=== PATIENT | male | born 1995 | race Caucasian/White ===

== ENCOUNTER 2018-06-19 21:43 | Emergency (ER) | payer OTHER ==
[2018-06-19] MEDS: NS 1,000 ML IV (23:01)
[2018-06-19] MEDS: METOCLOPRAMIDE INJ 10MG/2ML VIAL (J2765) IV (23:01)
[2018-06-19] MEDS: diphenhydrAMINE INJ 50MG/ML VIAL (J1200) IV (23:01)
[2018-06-19] MEDS: KETOROLAC 30 MG/ML VIAL (J1885) IV (23:02)
[2018-06-19 23:23] LABS: BASO % 0.3 % (0.0-1.0); EOS # 0.1 10^3/uL (0.0-0.50); EOS % 1.2 % (0.0-3.0); HEMATOCRIT 44.6 % (42.0-52.0); HEMOGLOBIN 15.4 g/dl (13.5-17.5); IMMATURE GRANULOCYTE % 0.3 % (0-3.0); LYMPH # 2.5 10^3/uL (1.5-6.5); LYMPH % 27.9 % (24.0-44.0); MEAN CORPUSCULAR HEMOGLOBIN 29.6 pg (27.0-33.0); MEAN CORPUSCULAR HGB CONC 34.5 g/dl (32.0-36.5); MEAN CORPUSCULAR VOLUME 85.8 fl (80.0-96.0); MONO # 0.7 10^3/uL (0.0-0.8); MONO % 7.5 % (0.0-5.0); NEUTROPHILS # 5.7 10^3/uL (1.8-7.7); NEUTROPHILS % 62.8 % (36.0-66.0); PLATELET COUNT, AUTOMATED 215 10^3/uL (150-450); WHITE BLOOD COUNT 9.1 10^3/uL (4.0-10.0)
[2018-06-19 23:35] LABS: ALBUMIN 3.8 GM/DL (3.2-5.2); ALKALINE PHOSPHATASE 74 U/L (45-117); ALT/SGPT 22 U/L (12-78); ANION GAP 6 MEQ/L (8-16); AST/SGOT 14 U/L (7-37); BILIRUBIN,DIRECT 0.1 MG/DL (0.0-0.2); BILIRUBIN,TOTAL 0.5 MG/DL (0.2-1.0); BLOOD UREA NITROGEN 16 MG/DL (7-18); CALCIUM LEVEL 8.8 MG/DL (8.5-10.1); CARBON DIOXIDE LEVEL 30 MEQ/L (21-32); CHLORIDE LEVEL 105 MEQ/L (98-107); CPK CREATINE PHOSPHOKINASE 116 U/L (39-308); GLOMERULAR FILTRATION RATE > 60.0 (>60); GLUCOSE, FASTING 93 MG/DL (70-100); LIPASE 154 U/L (73-393); MAGNESIUM LEVEL 2.1 MG/DL (1.8-2.4); POTASSIUM SERUM 3.6 MEQ/L (3.5-5.1); SODIUM LEVEL 141 MEQ/L (136-145); TOTAL PROTEIN 7.6 GM/DL (6.4-8.2); TROPONIN I < 0.02 NG/ML (< 0.10)
[2018-06-19 23:40] LABS: INR 1.13; PROTHROMBIN TIME 14.6 SECONDS (12.1-14.4)
[2018-06-19 23:41] LABS: CK-MB VALUE MASS < 1.0 NG/ML (<3.6); MB/CK RELATIVE INDEX 0.86 (< OR =4)
[2018-06-19 23:44] LABS: KETONE, URINE AUTO RFX NEGATIVE (NEGATIVE); MUCUS, URINE RFX SMALL (NEGATIVE); NITRITE, URINE AUTO RFX NEGATIVE (NEGATIVE); RBC, URINE AUTO RFX 1 /HPF (0-3); SPECIFIC GRAVITY UR AUTO RFX 1.033 (1.002-1.035); SQUAM EPITHELIAL CELL UR AURFX 0 /HPF (0-6)
[2018-06-19 23:45] LABS: LEUKOCYTE ESTERASE UR AUTO RFX TRACE (NEGATIVE); WBC, URINE AUTO RFX 11 /HPF (0-3)
== END 2018-06-20 00:10 | disposition home or self-care (01) ==
LOC: M ED 06-20 00:10
DX: J34.1 Cyst and mucocele of nose and nasal sinus (principal); J01.30 Acute sphenoidal sinusitis, unspecified; G43.909 Migraine, unspecified, not intractable, without status migrainosus
CPT/HCPCS: J1200

== ENCOUNTER 2019-06-12 20:18 | Emergency (ER) | payer OTHER ==
[~2019-06-12] VITALS: Ht 172.7 cm; Wt 79.5 kg
[2019-06-12] MEDS ORDERED: AMIT10TA PO (20:23)
[2019-06-12] MEDS ORDERED: PROP40TA62 PO (20:23)
[2019-06-13] MEDS ORDERED: KETOROLAC 60 MG/2 ML VIAL (J1885) IM ONE (00:30)
[2019-06-13] MEDS ORDERED: KETO10TAB PO (01:50)
[2019-06-13] MEDS ORDERED: CYCL10TA PO (01:54)
[2019-06-13 02:00] VITALS: BP 133/70
[2019-06-13] MEDS ORDERED: CYCLOBENZAPRINE 10 MG TAB PO ONE (02:00)
--- NOTE | 2019-06-13 08:12 | REP ---
Right femur four views : There is no fracture or dislocation. Mineralization and joint spaces are normal. There are no calcifications or foreign bodies. Impression: Negative right femur . Electronically Signed by Roberto Carlos Aguirre MD 06/13/2019 08:04 A
== END 2019-06-13 02:02 | disposition home or self-care (01) ==
LOC: M ED 20:18
DX: S70.11XA Contusion of right thigh, initial encounter (principal); W51.XXXA Accidental striking against or bumped into by another person, initial encounter; Y92.138 Other place on military base as the place of occurrence of the external cause; Y99.1 Military activity; Z79.899 Other long term (current) drug therapy
CPT/HCPCS: 73552; 96372; 99283; J1885